=== PATIENT | male | born 1955 | race Hispanic/Latino ===

== ENCOUNTER 2024-01-03 13:21 | Outpatient (CLI) | payer OTHER, MEDICAID | END 2024-01-03 13:22 | disposition home or self-care (01) | LOC: CSHWCC 13:21 | PROVIDERS: ATTEND Nurse Practitioner Family | DX: T81.31XD Disruption of external operation (surgical) wound, not elsewhere classified, subsequent encounter (principal) | CPT/HCPCS: 99213; G0463 ==